=== PATIENT | female | born 2005 | race Caucasian/White ===

== ENCOUNTER 2025-01-05 10:17 | Emergency (ER) | payer MEDICAID ==
[~2025-01-05] VITALS: Ht 167.6 cm; Wt 46.9 kg
[2025-01-05 10:35] VITALS: BP 130/83; PULSE 75; TEMP 98.5; O2SAT 100
[2025-01-05 12:21] VITALS: RESP 18
== END 2025-01-05 12:22 | disposition home or self-care (01) ==
LOC: ER 10:18
DX: S66.919A Strain of unspecified muscle, fascia and tendon at wrist and hand level, unspecified hand, initial encounter (principal); Y93.89 Activity, other specified; Y92.89 Other specified places as the place of occurrence of the external cause; Y99.8 Other external cause status
CPT/HCPCS: 99282